=== PATIENT | female | born 1950 | race Hispanic/Latino ===

== ENCOUNTER 2024-12-03 11:33 | Emergency (ER) | payer MEDICARE ==
[~2024-12-03] VITALS: Ht 149.9 cm; Wt 63.5 kg
[2024-12-03 13:48] LABS: BASOPHILS % 0.3 % (0.0-1.0); EOSINOPHILS % 0.8 % (0.0-6.0); LYMPHOCYTES % 30.5 % (18.0-39.1); MONOCYTES % 9.0 % (4.4-11.3); NEUTROPHILS % 59.2 % (38.7-80.0); RED CELL DISTRIBUTION WIDTH 12.8 % (11.7-14.4)
[2024-12-03 13:56] LABS: LEUKOCYTE ESTERASE ,URINE NEGATIVE (NEGATIVE); PROTEIN,URINE DIPSTICK 1+ (NEGATIVE); URINE UROBILINOGEN 0.2 mg/dL (0.2 - 1)
[2024-12-03] MEDS: ONDANSETRON HCL INJ 2MG/ML 2ML 2 MG/ML VIAL IV STA (14:01)
[2024-12-03] MEDS: SODIUM CHLORIDE 0.9% 1000ML 1,000 ML IV STA (14:01)
[2024-12-03 14:12] LABS: EPITHELIAL CELLS,URINE FEW /LPF; WBC,URINE (MAN) 0-5 /HPF (0-5)
[2024-12-03 14:36] LABS: EST GLOMERULAR FILTRATION RATE 90 ML/MIN (>=60)
[2024-12-03] MEDS ORDERED: IOPAMIDOL 370 MG/ML 100 ML INFUS..BTL INJ ONE ×2 (15:39→19:45)
[2024-12-03 19:30] VITALS: TEMP 98.1
[2024-12-03 22:00] VITALS: PULSE 63; RESP 18; O2SAT 94
[2024-12-03] MEDS ORDERED: KETOROLAC TROME10 MG PO (22:15)
[2024-12-03] MEDS ORDERED: ONDANSETRON ODT4 MG PO (22:15)
== END 2024-12-03 22:05 | disposition home or self-care (01) ==
LOC: ER 12:40
DX: R10.30 Lower abdominal pain, unspecified (principal); K29.70 Gastritis, unspecified, without bleeding; R11.2 Nausea with vomiting, unspecified; R22.2 Localized swelling, mass and lump, trunk; E27.9 Disorder of adrenal gland, unspecified; E32.9 Disease of thymus, unspecified
CPT/HCPCS: 36415; 71045; 71260; 74177; 80053; 81001; 82550; 83690; 83735; 84484; 85025; 93005; 99284; J2405; J2470; J7030; Q9967